=== PATIENT | male | born 1980 | race Hispanic/Latino ===

== ENCOUNTER 2018-08-30 13:31 | Emergency (ER) | payer MEDICAID, OTHER ==
[2018-08-30] MEDS ORDERED: IBUPROFEN 600 MG TABLET ONE (14:39)
== END 2018-08-30 15:16 | disposition home or self-care (01) ==
LOC: EDH 13:31
DX: S83.91XA Sprain of unspecified site of right knee, initial encounter (principal); W18.39XA Other fall on same level, initial encounter; Y93.89 Activity, other specified; Y92.89 Other specified places as the place of occurrence of the external cause; Y99.8 Other external cause status
CPT/HCPCS: 73562

== ENCOUNTER 2020-12-16 07:55 | Day surgery (SDC) | payer MEDICAID ==
[2020-12-09 14:12] LABS: EOSINOPHILS % (AUTO) 2.8 % (0.0-8.0); HEMATOCRIT 44.6 % (42-54); LYMPHOCYTES % (AUTO) 39.1 % (21.0-51.0); MEAN CORPUSCULAR HEMOGLOBIN 30.6 pg (27.0-33.0); MEAN CORPUSCULAR HGB CONC 33.6 g/dL (32.0-36.0); MONOCYTES % (AUTO) 8.7 % (3.0-13.0); NEUTROPHILS % (AUTO) 47.4 % (40.0-77.0); PLATELET COUNT (AUTO) 302 K/uL (130-400); RED CELL DISTRIBUTION WIDTH 13.2 % (11.0-15.5)
[2020-12-09 14:21] LABS: CREATININE 0.7 mg/dL (0.5-1.5); POTASSIUM 3.7 mmol/L (3.5-5.1)
[2020-12-13 09:33] VITALS: BP 143/90
[~2020-12-16] VITALS: Ht 182.9 cm; Wt 102.1 kg
[2020-12-16] VITALS (17 sets, daily range): BP systolic 123–169; BP diastolic 77–106
[~2020-12-16 07:55] MED LIST: CEFAZOLIN SODIUM 1 GM VIAL IVP SCH
[2020-12-16] MEDS: 0.9%NACL 1000ML 1,000 ML IV SCH ×3 (10:12→11:55)
[2020-12-16] MEDS ORDERED: MIDAZOLAM HCL 1 MG/ML 2ML VIAL ONE (10:22)
[2020-12-16] MEDS ORDERED: FENTANYL CITRATE PF 50 MCG/1 ML 2ML VIAL ONE ×3 (10:22→11:47)
[2020-12-16] MEDS ORDERED: PROPOFOL 10 MG/ML 20ML VIAL IV ONE (10:22)
[2020-12-16] MEDS ORDERED: MEPERIDINE-PF 25 MG/ML SYG ONE (10:22)
[2020-12-16] MEDS ORDERED: LIDOCAINE PF 100MG/5ML (2%) SYRINGE 5ML ONE (10:22)
[2020-12-16] MEDS ORDERED: ROPIVACAINE 0.5% 5MG/ML 30ML IJ ONE (10:29)
[2020-12-16] MEDS ORDERED: ROCURONIUM 10MG/1ML SYR 10 MG/ML ML ONE (10:31)
[2020-12-16] MEDS ORDERED: ONDANSETRON 4MG INJ ONE (10:33)
[2020-12-16] MEDS ORDERED: CEFAZOLIN SODIUM 1 GM VIAL ONE (10:57)
[2020-12-16] MEDS ORDERED: GLYCOPYRROLATE 1 MG/5 ML SYRINGE ONE (11:33)
[2020-12-16] MEDS ORDERED: NEOSTIGMINE 5MG/5ML SYR IV ONE (11:33)
[2020-12-16] MEDS ORDERED: DEXAMETHASONE SOD PHOSPHATE 10MG/ML 1ML VIAL ONE (11:35)
[2020-12-16] MEDS ORDERED: KETOROLAC 30MG VIAL (30MG/ML) ONE (11:36)
[2020-12-16] MEDS ORDERED: HYDRALAZINE 20MG/ML VIAL ONE (12:07)
== END 2020-12-16 13:34 | disposition home or self-care (01) ==
LOC: DAH 07:55
PROVIDERS: ATTEND Surgery
DX: K42.0 Umbilical hernia with obstruction, without gangrene (principal); Z20.822 Contact with and (suspected) exposure to COVID-19; K43.6 Other and unspecified ventral hernia with obstruction, without gangrene; E66.01 Morbid (severe) obesity due to excess calories; Z68.30 Body mass index [BMI] 30.0-30.9, adult; Z98.890 Other specified postprocedural states
CPT/HCPCS: 36415; 49561; 49568; 49587; 64488; 80048; 85025; 87635; A4215; A4221; A4222; A4223; A4452; A4649; A4663; A6260; C1781; C9803; J0360; J0690 ×2; J1100; J1885; J2175; J2250; J2405; J2710; J2795; J3010 ×3; J3490 ×3; J7030; J2001; J2704